=== PATIENT | male | born 1965 | race Two or more races ===

== ENCOUNTER 2025-03-03 14:48 | Emergency (ER) | payer OTHER ==
[~2025-03-03] VITALS: Ht 152.4 cm; Wt 90.7 kg
[2025-03-03] MEDS ORDERED: CLONAZEPAM1 MG PO (16:15)
[2025-03-03] MEDS ORDERED: ZESTRIL2.5 MG PO (16:15)
[2025-03-03] MEDS ORDERED: DULOXETINE HCL40 MG PO (16:16)
[2025-03-03] MEDS ORDERED: TRAZODONE HCL50 MG PO (16:16)
[2025-03-03] MEDS ORDERED: 0.9 % SODIUM CHLORIDE 1,000 ML IV SCH (20:00)
[2025-03-03] MEDS ORDERED: ONDANSETRON HCL 2 MG/ML VIAL IV STA (20:01)
[2025-03-03] MEDS ORDERED: FAMOtidine 10 MG/ML (4ML VIAL) IV STA (20:01)
[2025-03-03] MEDS ORDERED: ONDANSETRON HCL 2 MG/ML VIAL ONE (20:03)
[2025-03-03] MEDS ORDERED: FAMOTIDINE/PF 20 MG/2 ML VIAL ONE (20:03)
[2025-03-03 20:30] LABS: BASO % 0.2 % (0.1-1.2); EOS # 0.03 (0.04-0.54); EOS % 0.2 % (0.7-7.0); LYMPH # 2.99 (1.18-3.74); LYMPH % 19.3 % (19.3-53.1); MEAN PLATELET VOLUME 9.90 fl (9.4-12.4); MONO # 1.42 (0.24-0.82); MONO % 9.2 % (4.7-12.5); NEUT # 10.94 (1.56-6.13); NEUT % 70.8 % (34.0-71.1); RED CELL DISTRIBUTION WIDTH 11.8 % (11.6-14.4)
[2025-03-03 21:00] LABS: ALT/SGPT 26.0 U/L (12-78); AST/SGOT 15.0 U/L (15-37); BILIRUBIN TOTAL 1.21 mg/dL (0.3-1.2); BUN CREA RATIO 8.0 (7.0-25.0); CREATININE SERUM 1.02 mg/dL (0.70-1.30); GFR 74.25; GLOBULINA 4.5 G/DL (2.4-3.5); GLUCOSE FASTING 162.0 mg/dL (65-100); OSMOLALITY SERUM 276.0 MOSM/KG (275-295)
[2025-03-03 21:08] LABS: URINE APPEARANCE Clear; URINE BILIRRUBIN Negative (NEGATIVE); URINE BLOOD Negative; URINE COLOR Dark Yellow; URINE GLUCOSE Negative (NEGATIVE); URINE LEUKOCYTE Trace; URINE NITRATE Negative; URINE PROTEIN 30 (NEGATIVE); URINE UROBILINOGEN 1.0 E.U./dl
[2025-03-03 21:19] LABS: URINE BACTERIA 5.9 uL (0.0-1933); URINE EPITHELIAL CELLS 5.0 uL (0.0-38.8); URINE RBC 11.8 uL (0.0-20.8); URINE WBC 8.7 uL (0.0-23.2)
[2025-03-03 21:21] LABS: URINE CAST 0.14 uL (0.0-1.40); URINE KETONE 40 (NEGATIVE)
== END 2025-03-04 00:38 | disposition home or self-care (01) ==
LOC: ER 14:49
PROVIDERS: Physician Assistant Medical
DX: K52.89 Other specified noninfective gastroenteritis and colitis (principal); E87.6 Hypokalemia
CPT/HCPCS: 36415; 96365; 99282; J2405; J3490; J7030